=== PATIENT | male | born 1995 | race Native Hawaiian/Other Pacific Islander ===

== ENCOUNTER 2017-02-13 02:03 | Emergency (ER) | payer SELFPAY ==
[~2017-02-13] VITALS: Ht 170.2 cm; Wt 69.0 kg
[~2017-02-13 02:03] MED LIST: BENZ1CAP34 PO
[2017-02-13 02:07] VITALS: BP 138/79; PULSE 99; RESP 15; TEMP 98.5; O2SAT 100
--- NOTE | 2017-02-13 03:27 | PD ---
HPI Chief Complaint: Cold / Flu Symptoms Time Seen by Provider: 03:25 Travel History International Travel<30 days: No Contact w/Intl Traveler<30days: No Traveled to known affect area: No History of Present Illness HPI Patient comes in complaining of cough, congestion, sore throat ongoing for 2 days. Patient denies any nausea, vomiting, diarrhea, abdominal pain, shortness breath, chest pain, or fevers. Patient roommate was seen here for the same a few days ago worked up and diagnosed with viral syndrome. Patient denies taking anything for this. Patient denies anything making it better or worse. [facility] Social History Alcohol Use: Yes Tobacco Use: Yes Substance Use: No Allergies-Medications (Allergen,Severity, Reaction): Coded Allergies: No Known Allergies (Unverified , 02/13/17) Reported Meds & Prescriptions Reported Meds & Active Scripts Active Benzonatate 200 Mg Cap 200 Mg PO TID PRN Review of Systems Except as stated in HPI: all other systems reviewed are Neg Physical Exam Narrative GENERAL: Well-developed, well nourished, in no acute distress, and non-ill appearing. SKIN: Warm and dry. HEAD: Atraumatic. Normocephalic. EYES: Pupils equal and round. EOMI. No scleral icterus. No injection or drainage. ENT: No nasal bleeding or discharge. Mucous membranes pink and moist. Tympanic membranes pearly combs bilaterally. Posterior pharynx nonerythematous without exudate. Uvula is midline. No tenderness to facial sinuses to palpation. NECK: Trachea midline. No cervical lymphadenopathy. Supple. No nuclear rigidity. CARDIOVASCULAR: Regular rate and rhythm. No murmur appreciated. RESPIRATORY: No accessory muscle use. No respiratory distress. Clear to auscultation. Breath sounds equal bilaterally. MUSCULOSKELETAL: No obvious deformities. No clubbing. No cyanosis. No edema. Full range of motion. NEUROLOGICAL: Awake and alert. No obvious cranial nerve deficits. Motor grossly within normal limits. Normal speech. PSYCHIATRIC: Appropriate mood and affect; insight and judgment normal. Data Data Last Documented VS Vital Signs Date Time Temp Pulse Resp B/P Pulse Ox O2 Delivery O2 Flow Rate FiO2 02/13/17 02:07 98.5 99 15 138/79 100 Room Air Orders Group A Rapid Strep Screen (02/13/17 03:21) Strep Culture (Group A) (02/13/17 02:52) [facility] Medical Decision Making Medical Screen Exam Complete: Yes Emergency Medical Condition: Yes Differential Diagnosis Viral syndrome, upper respiratory infection, allergies, strep pharyngitis, other Narrative Course Patients symptom complex of cough and congestion is consistent with viral URI. The patient is non-ill appearing and is in no respiratory distress and comfortable. The patient moves air well and oxygen saturations are normal. There is no clinical evidence to suggest pneumonia at this time. Plan of care and management were discussed with the patient who agreed with plan. The patient was instructed to follow up with their physician and instructed to return if worsens, progressively worsening shortness of breath or difficulty breathing, persistent fever, chest pains or discomfort, inability to keep medication or fluids down with or without vomiting, or as needed. Patient in no obvious distress upon re-evaluation. All pertinent laboratory result(s) discussed with patient. Any questions/concerns in reference to patient diagnosis/condition discussed and clarified prior to patient's discharge. Reinforced sheer importance of close follow up with patient's primary physician or primary care clinic. Instructed patient to return to ED immediately, if symptoms return/worsen. Pt showed understanding of above instructions. Further instructions and recommendations were detailed in discharge paperwork. Pt ambulated without difficulty out of ED at discharge. Diagnosis Primary Impression: Viral upper respiratory infection Patient Instructions: General Instructions, Upper Respiratory Infection (ED) Additional Instructions: Follow-up with your primary care physician in 3-5 days for reevaluation. Use [id number] cold and flu medication for symptomatic relief. Follow instructions on the packaging. Drink plenty of non-caffeinated and nonalcoholic fluids. Return to the emergency department if symptoms get worse. Disposition: 01 DISCHARGE HOME Condition: Stable Merrick Daley Feb 13, 2017 03:27
== END 2017-02-13 04:01 | disposition home or self-care (01) ==
LOC: NEPB 02:03
DX: J06.9 Acute upper respiratory infection, unspecified (principal); Z72.0 Tobacco use
CPT/HCPCS: 87081; 87880; 99283